=== PATIENT | male | born 1955 | race African-American/Black ===

== ENCOUNTER 2021-03-20 06:28 | Inpatient (IN) | payer OTHER ==
[2021-03-20] MEDS ORDERED: SODIUM CHLORIDE 1,000 ML IV STA (06:39)
[2021-03-20 07:05] VITALS: BMI 25.7
[2021-03-20] MEDS ORDERED: LORazepam 2 MG/ML SDV VIAL IVPUSH ONE ×2 (07:44→13:24)
[2021-03-20] MEDS ORDERED: LORazepam 2 MG/ML SDV VIAL ONE ×2 (07:46→13:25)
[2021-03-20] MEDS ORDERED: levETIRAcetam 500 MG/5 ML INJECTION VIAL IVPB ONE ×2 (07:51)
[2021-03-20 08:36] LABS: BASO % 0.2 % (0-2.0); HEMOGLOBIN 15.2 GM/dL (11.7-16.9); LYMPH % 7.4 % (8-40); MCH 33.1 pg (25.7-33.7); MCHC 33.1 g/dl (32.0-35.9); MEAN CELL VOLUME 100.1 fl (80-96); MEAN PLT VOLUME 6.9 fl (7.5-11.1); MONO % 4.9 % (3.8-10.2); NEUT % 87.5 % (42.8-82.8); PLATELET COUNT 293 K/MM3 (134-434); WHITE BLOOD COUNT 8.8 K/mm3 (4.0-10.0)
[2021-03-20 08:38] LABS: PH,URINE 5.5 (5.0-8.0); URINE APPEARANCE CLEAR; URINE BILIRUBIN NEGATIVE (NEGATIVE); URINE COLOR YELLOW; URINE GLUCOSE (UA) 2+ (NEGATIVE); URINE KETONE NEGATIVE (NEGATIVE); URINE LEUK ESTERASE NEGATIVE (NEGATIVE); URINE NITRITE NEGATIVE (NEGATIVE); URINE PROTEIN TRACE (NEGATIVE); URINE UROBILINOGEN 0.2 mg/dL (0.2-1.0)
[2021-03-20 08:50] LABS: INR 0.93 (0.83-1.09); PROTHROMBIN TIME (PATIENT) 11.5 SEC (9.7-13.0)
[2021-03-20 08:52] LABS: ACTIVATED PTT 25.3 SECONDS (25.2-36.5)
[2021-03-20 08:53] LABS: CHLORIDE 102 mmol/L (98-107); SODIUM 133 mmol/L (136-145)
[2021-03-20 08:55] LABS: ALBUMIN 4.2 g/dl (3.4-5.0); ANION GAP 15 MMOL/L (8-16); CALCIUM 9.2 mg/dL (8.5-10.1); CO2 17 mmol/L (21-32); GLUCOSE,RANDOM 197 mg/dL (74-106)
[2021-03-20 08:56] LABS: BLOOD UREA NITROGEN 20.7 mg/dL (7-18)
[2021-03-20 08:58] LABS: CHOLESTEROL 247 mg/dL (50-200); SGOT/AST 19 U/L (15-37); SGPT/ALT 27 U/L (13-61)
[2021-03-20 08:59] LABS: CREATININE 1.5 mg/dL (0.55-1.3); LDL CHOLESTEROL (ONLY SJRH) 142 mg/dL (5-100); TRIGLYCERIDES 218 mg/dL (0-150)
[2021-03-20 09:00] LABS: BILIRUBIN,TOTAL 0.4 mg/dL (0.2-1); TOT PROT 7.8 g/dl (6.4-8.2)
[2021-03-20 09:01] LABS: ALK PHOS 64 U/L (45-117); HDL CHOLESTEROL 46 mg/dL (40-60)
[2021-03-20 17:56] LABS: METHADONE, UR NEGATIVE ng/ml (CUTOFF=300); OPIATES, URI NEGATIVE ng/ml (CUTOFF=300); PHENCYCLIDINE,URINE NEGATIVE ng/ml (CUTOFF=25)
[2021-03-20 17:57] LABS: COCAINE, UR POSITIVE ng/ml (CUTOFF=300); URINE AMPHETAMINES NEGATIVE ng/ml (CUTOFF=500); URINE BARBITURATES NEGATIVE ng/ml (CUTOFF=200); URINE BENZODIAZEPINES POSITIVE ng/ml (CUTOFF=200)
[2021-03-20] MEDS: INSULIN SLIDING SCALE (NOVOLOG) 1 VIAL SQ SCH (21:19)
[2021-03-20] MEDS: levETIRAcetam 500 MG/5 ML INJECTION VIAL IVPB SCH (21:29)
[2021-03-21] MEDS: INSULIN SLIDING SCALE (NOVOLOG) 1 VIAL SQ SCH ×4 (07:02→23:19)
[2021-03-21 08:19] LABS: BASO % 0.6 % (0-2.0); EOS % 2.2 % (0-4.5); HEMATOCRIT 46.2 % (35.4-49); HEMOGLOBIN 15.2 GM/dL (11.7-16.9); LYMPH % 19.9 % (8-40); MCH 32.8 pg (25.7-33.7); MCHC 32.8 g/dl (32.0-35.9); MEAN CELL VOLUME 99.8 fl (80-96); MEAN PLT VOLUME 7.1 fl (7.5-11.1); MONO % 8.1 % (3.8-10.2); NEUT % 69.2 % (42.8-82.8); PLATELET COUNT 274 K/MM3 (134-434); RBC 4.63 M/mm3 (4.00-5.60); RDW 13.9 % (11.9-15.9); WHITE BLOOD COUNT 9.1 K/mm3 (4.0-10.0)
[2021-03-21 08:50] LABS: ALBUMIN 3.9 g/dl (3.4-5.0); CALCIUM 9.5 mg/dL (8.5-10.1)
[2021-03-21 08:51] LABS: BLOOD UREA NITROGEN 16.6 mg/dL (7-18)
[2021-03-21 08:54] LABS: CREATININE 0.8 mg/dL (0.55-1.3)
[2021-03-21 08:55] LABS: BILIRUBIN,TOTAL 0.9 mg/dL (0.2-1); TOT PROT 7.3 g/dl (6.4-8.2)
[2021-03-21] MEDS ORDERED: LISINOPRIL 5 MG TABLET PO SCH (10:00)
[2021-03-21] MEDS: levETIRAcetam 500 MG/5 ML INJECTION VIAL IVPB SCH ×2 (10:14→23:18)
[2021-03-21] MEDS: ENOXAPARIN NA (PORCINE) 40 MG/0.4 ML DISP.SYRIN SQ SCH (10:14)
[2021-03-21] MEDS: ATORVASTATIN CA 40 MG TABLET (FP) PO SCH (23:18)
[2021-03-21] MEDS: ASPIRIN COATED 81 MG TABLET.EC PO SCH (23:18)
[2021-03-22] MEDS: INSULIN SLIDING SCALE (NOVOLOG) 1 VIAL SQ SCH ×4 (06:31→22:37)
[2021-03-22 08:15] LABS: BASO % 0.5 % (0-2.0); EOS % 2.1 % (0-4.5); LYMPH % 19.9 % (8-40); MCH 33.1 pg (25.7-33.7); MCHC 33.4 g/dl (32.0-35.9); MEAN CELL VOLUME 99.1 fl (80-96); MEAN PLT VOLUME 7.3 fl (7.5-11.1); MONO % 9.6 % (3.8-10.2); NEUT % 67.9 % (42.8-82.8); PLATELET COUNT 322 10^3/uL (134-434); RBC 4.84 M/mm3 (4.00-5.60); RDW 13.9 % (11.9-15.9); WHITE BLOOD COUNT 8.5 K/mm3 (4.0-10.0)
[2021-03-22 08:32] LABS: ALBUMIN 4.1 g/dl (3.4-5.0); BLOOD UREA NITROGEN 15.9 mg/dL (7-18); CALCIUM 9.5 mg/dL (8.5-10.1)
[2021-03-22 08:36] LABS: CREATININE 0.9 mg/dL (0.55-1.3)
[2021-03-22 08:37] LABS: BILIRUBIN,TOTAL 1.4 mg/dL (0.2-1)
[2021-03-22] MEDS ORDERED: LISINOPRIL 10 MG TABLET PO ONE (09:39)
[2021-03-22] MEDS ORDERED: LISINOPRIL 5 MG TABLET PO SCH (09:40)
[2021-03-22] MEDS: LISINOPRIL 10 MG TABLET PO SCH (10:18)
[2021-03-22] MEDS: levETIRAcetam 500 MG/5 ML INJECTION VIAL IVPB SCH ×2 (10:18→22:35)
[2021-03-22] MEDS: ENOXAPARIN NA (PORCINE) 40 MG/0.4 ML DISP.SYRIN SQ SCH (10:19)
[2021-03-22] MEDS: ASPIRIN COATED 81 MG TABLET.EC PO SCH (10:19)
[2021-03-22] MEDS ORDERED: INSULIN (NOVOLOG) ASPART 100 UNITS/ML 10ML VIAL ONE (11:49)
[2021-03-22] MEDS ORDERED: ALPRAZolam 0.25 MG TABLET PO ONE ×2 (12:00→17:45)
[2021-03-22] MEDS: ATORVASTATIN CA 40 MG TABLET (FP) PO SCH (22:34)
[2021-03-22] MEDS: LATANOPROST 0.005% OPHTH SOLN 2.5ML BOTTLE OD SCH (22:38)
[2021-03-23] MEDS ORDERED: ALPRAZolam 0.25 MG TABLET PO ONE ×2 (02:30→22:00)
[2021-03-23] MEDS: INSULIN SLIDING SCALE (NOVOLOG) 1 VIAL SQ SCH ×4 (06:05→23:25)
[2021-03-23 07:18] LABS: BASO % 0.8 % (0-2.0); EOS % 0.9 % (0-4.5); HEMATOCRIT 49.5 % (35.4-49); HEMOGLOBIN 16.8 GM/dL (11.7-16.9); LYMPH % 17.7 % (8-40); MCH 33.6 pg (25.7-33.7); MCHC 33.9 g/dl (32.0-35.9); MEAN PLT VOLUME 7.1 fl (7.5-11.1); MONO % 10.3 % (3.8-10.2); NEUT % 70.3 % (42.8-82.8); PLATELET COUNT 322 10^3/uL (134-434); WHITE BLOOD COUNT 9.8 K/mm3 (4.0-10.0)
[2021-03-23 07:43] LABS: ALBUMIN 4.3 g/dl (3.4-5.0); CALCIUM 9.8 mg/dL (8.5-10.1)
[2021-03-23 07:48] LABS: BILIRUBIN,TOTAL 1.3 mg/dL (0.2-1); TOT PROT 8.5 g/dl (6.4-8.2)
[2021-03-23] MEDS: ASPIRIN COATED 81 MG TABLET.EC PO SCH (09:56)
[2021-03-23] MEDS: ENOXAPARIN NA (PORCINE) 40 MG/0.4 ML DISP.SYRIN SQ SCH (09:56)
[2021-03-23] MEDS: LISINOPRIL 10 MG TABLET PO SCH (09:56)
[2021-03-23] MEDS: levETIRAcetam 500 MG/5 ML INJECTION VIAL IVPB SCH ×2 (09:56→21:58)
[2021-03-23] MEDS: ACETAMINOPHEN 1000 MG/100 ML VIAL (NON FORMULARY) IVPB PRN (16:51)
[2021-03-23] MEDS: ATORVASTATIN CA 40 MG TABLET (FP) PO SCH (21:57)
[2021-03-23] MEDS: LATANOPROST 0.005% OPHTH SOLN 2.5ML BOTTLE OD SCH (21:58)
[2021-03-24] MEDS: ACETAMINOPHEN 1000 MG/100 ML VIAL (NON FORMULARY) IVPB PRN ×2 (02:43→11:23)
[2021-03-24] MEDS: INSULIN SLIDING SCALE (NOVOLOG) 1 VIAL SQ SCH ×4 (06:10→22:30)
[2021-03-24 07:08] LABS: BASO % 0.5 % (0-2.0); EOS % 1.8 % (0-4.5); HEMATOCRIT 47.4 % (35.4-49); HEMOGLOBIN 16.1 GM/dL (11.7-16.9); LYMPH % 22.8 % (8-40); MCH 33.5 pg (25.7-33.7); MCHC 33.9 g/dl (32.0-35.9); MEAN CELL VOLUME 98.9 fl (80-96); MONO % 8.6 % (3.8-10.2); NEUT % 66.3 % (42.8-82.8); PLATELET COUNT 302 10^3/uL (134-434); RDW 13.8 % (11.9-15.9); WHITE BLOOD COUNT 7.6 K/mm3 (4.0-10.0)
[2021-03-24 07:30] LABS: CALCIUM 9.3 mg/dL (8.5-10.1)
[2021-03-24 07:31] LABS: BLOOD UREA NITROGEN 29.5 mg/dL (7-18)
[2021-03-24 07:35] LABS: BILIRUBIN,TOTAL 1.4 mg/dL (0.2-1)
[2021-03-24 07:36] LABS: TOT PROT 7.8 g/dl (6.4-8.2)
[2021-03-24] MEDS: levETIRAcetam 500 MG/5 ML INJECTION VIAL IVPB SCH ×2 (09:43→21:56)
[2021-03-24] MEDS: LISINOPRIL 10 MG TABLET PO SCH (09:43)
[2021-03-24] MEDS: ENOXAPARIN NA (PORCINE) 40 MG/0.4 ML DISP.SYRIN SQ SCH (09:43)
[2021-03-24] MEDS: ASPIRIN COATED 81 MG TABLET.EC PO SCH (09:43)
[2021-03-24] MEDS: ATORVASTATIN CA 40 MG TABLET (FP) PO SCH (21:56)
[2021-03-24] MEDS: LATANOPROST 0.005% OPHTH SOLN 2.5ML BOTTLE OD SCH (22:25)
[2021-03-25] MEDS: ACETAMINOPHEN 1000 MG/100 ML VIAL (NON FORMULARY) IVPB PRN ×3 (04:24→17:41)
[2021-03-25] MEDS: INSULIN SLIDING SCALE (NOVOLOG) 1 VIAL SQ SCH ×4 (06:19→21:52)
[2021-03-25 08:16] LABS: BASO % 0.5 % (0-2.0); EOS % 2.7 % (0-4.5); HEMOGLOBIN 15.7 GM/dL (11.7-16.9); LYMPH % 26.9 % (8-40); MCH 32.8 pg (25.7-33.7); MCHC 32.8 g/dl (32.0-35.9); MEAN PLT VOLUME 7.1 fl (7.5-11.1); MONO % 8.3 % (3.8-10.2); NEUT % 61.6 % (42.8-82.8); PLATELET COUNT 310 10^3/uL (134-434); RDW 13.9 % (11.9-15.9); WHITE BLOOD COUNT 7.6 K/mm3 (4.0-10.0)
[2021-03-25 08:23] LABS: ALBUMIN 3.7 g/dl (3.4-5.0); CALCIUM 9.4 mg/dL (8.5-10.1)
[2021-03-25 08:26] LABS: CREATININE 0.9 mg/dL (0.55-1.3)
[2021-03-25 08:28] LABS: BILIRUBIN,TOTAL 1.1 mg/dL (0.2-1); TOT PROT 7.4 g/dl (6.4-8.2)
[2021-03-25] MEDS: LISINOPRIL 10 MG TABLET PO SCH (09:19)
[2021-03-25] MEDS: levETIRAcetam 500 MG/5 ML INJECTION VIAL IVPB SCH ×2 (09:19→21:34)
[2021-03-25] MEDS: ENOXAPARIN NA (PORCINE) 40 MG/0.4 ML DISP.SYRIN SQ SCH (09:19)
[2021-03-25] MEDS: SPIRONOLACTONE 25 MG TABLET PO SCH (09:19)
[2021-03-25] MEDS: ASPIRIN COATED 81 MG TABLET.EC PO SCH (09:19)
[2021-03-25] MEDS ORDERED: CARVEDILOL 3.125 MG TABLET (FP) PO SCH (10:00)
[2021-03-25] MEDS ORDERED: INSULIN (NOVOLOG) ASPART 100 UNITS/ML 10ML VIAL ONE (11:52)
[2021-03-25] MEDS: ATORVASTATIN CA 40 MG TABLET (FP) PO SCH (21:34)
[2021-03-25] MEDS: LATANOPROST 0.005% OPHTH SOLN 2.5ML BOTTLE OD SCH (21:35)
[2021-03-26] MEDS: ACETAMINOPHEN 1000 MG/100 ML VIAL (NON FORMULARY) IVPB PRN (02:20)
[2021-03-26] MEDS: INSULIN SLIDING SCALE (NOVOLOG) 1 VIAL SQ SCH ×4 (06:23→21:43)
[2021-03-26] MEDS: LISINOPRIL 10 MG TABLET PO SCH (09:47)
[2021-03-26] MEDS: SPIRONOLACTONE 25 MG TABLET PO SCH (09:47)
[2021-03-26] MEDS: ASPIRIN COATED 81 MG TABLET.EC PO SCH (09:47)
[2021-03-26] MEDS: ENOXAPARIN NA (PORCINE) 40 MG/0.4 ML DISP.SYRIN SQ SCH (09:47)
[2021-03-26] MEDS: levETIRAcetam 500 MG/5 ML INJECTION VIAL IVPB SCH (09:47)
[2021-03-26] MEDS ORDERED: INSULIN (NOVOLOG) ASPART 100 UNITS/ML 10ML VIAL ONE (11:30)
[2021-03-26] MEDS: MULTIVITAMINS (DAILY MVI) TABLET (FP) PO SCH (11:34)
[2021-03-26 15:02] LABS: N-TERMINAL BNP 96.5 pg/ml (5-125)
[2021-03-26] MEDS: ISOSORBIDE MONONITRATE 30 MG TAB.SR.24H (FP) PO SCH (16:46)
[2021-03-26] MEDS: ATORVASTATIN CA 40 MG TABLET (FP) PO SCH (21:17)
[2021-03-26] MEDS: hydrALAZINE HCL 10 MG TABLET PO SCH (21:17)
[2021-03-26] MEDS: levETIRAcetam 500 MG TABLET (FP) PO SCH (21:17)
[2021-03-26] MEDS: traMADol HCL 50 MG TABLET PO PRN (21:17)
[2021-03-26] MEDS: LATANOPROST 0.005% OPHTH SOLN 2.5ML BOTTLE OD SCH (21:19)
[2021-03-27] MEDS: INSULIN SLIDING SCALE (NOVOLOG) 1 VIAL SQ SCH ×4 (06:24→21:24)
[2021-03-27 07:34] LABS: EOS % 4.6 % (0-4.5); HEMATOCRIT 44.9 % (35.4-49); HEMOGLOBIN 14.8 GM/dL (11.7-16.9); MCH 33.1 pg (25.7-33.7); MCHC 32.9 g/dl (32.0-35.9); MEAN CELL VOLUME 100.6 fl (80-96); MEAN PLT VOLUME 7.3 fl (7.5-11.1); MONO % 8.1 % (3.8-10.2); NEUT % 57.3 % (42.8-82.8); PLATELET COUNT 281 10^3/uL (134-434); RBC 4.46 M/mm3 (4.00-5.60); RDW 13.4 % (11.9-15.9); WHITE BLOOD COUNT 6.7 K/mm3 (4.0-10.0)
[2021-03-27 07:44] LABS: CALCIUM 9.5 mg/dL (8.5-10.1)
[2021-03-27 07:45] LABS: BLOOD UREA NITROGEN 22.8 mg/dL (7-18)
[2021-03-27 07:47] LABS: ALBUMIN 3.5 g/dl (3.4-5.0)
[2021-03-27 07:50] LABS: BILIRUBIN,TOTAL 1.1 mg/dL (0.2-1); CREATININE 0.8 mg/dL (0.55-1.3)
[2021-03-27] MEDS: hydrALAZINE HCL 10 MG TABLET PO SCH ×2 (09:21→21:05)
[2021-03-27] MEDS: ASPIRIN COATED 81 MG TABLET.EC PO SCH (09:21)
[2021-03-27] MEDS: ENOXAPARIN NA (PORCINE) 40 MG/0.4 ML DISP.SYRIN SQ SCH (09:21)
[2021-03-27] MEDS: MULTIVITAMINS (DAILY MVI) TABLET (FP) PO SCH (09:21)
[2021-03-27] MEDS: SPIRONOLACTONE 25 MG TABLET PO SCH (09:21)
[2021-03-27] MEDS: levETIRAcetam 500 MG TABLET (FP) PO SCH ×2 (09:21→21:04)
[2021-03-27] MEDS: LISINOPRIL 10 MG TABLET PO SCH (09:21)
[2021-03-27] MEDS: ISOSORBIDE MONONITRATE 30 MG TAB.SR.24H (FP) PO SCH (09:21)
[2021-03-27] MEDS: traMADol HCL 50 MG TABLET PO PRN (13:55)
[2021-03-27] MEDS: ATORVASTATIN CA 40 MG TABLET (FP) PO SCH (21:05)
[2021-03-27] MEDS: LATANOPROST 0.005% OPHTH SOLN 2.5ML BOTTLE OD SCH (21:25)
[2021-03-28] MEDS: traMADol HCL 50 MG TABLET PO PRN ×3 (00:03→16:27)
[2021-03-28] MEDS: INSULIN SLIDING SCALE (NOVOLOG) 1 VIAL SQ SCH ×4 (06:02→21:28)
[2021-03-28] MEDS: MULTIVITAMINS (DAILY MVI) TABLET (FP) PO SCH (10:13)
[2021-03-28] MEDS: hydrALAZINE HCL 10 MG TABLET PO SCH ×2 (10:14→21:28)
[2021-03-28] MEDS: levETIRAcetam 500 MG TABLET (FP) PO SCH ×2 (10:14→21:28)
[2021-03-28] MEDS: ISOSORBIDE MONONITRATE 30 MG TAB.SR.24H (FP) PO SCH (10:14)
[2021-03-28] MEDS: SPIRONOLACTONE 25 MG TABLET PO SCH (10:14)
[2021-03-28] MEDS: ASPIRIN COATED 81 MG TABLET.EC PO SCH (10:14)
[2021-03-28] MEDS: LISINOPRIL 10 MG TABLET PO SCH (10:14)
[2021-03-28] MEDS ORDERED: SODIUM PHOSPHATE/NA BIPHOS 133 ML ENEMA PR ONE (14:34)
[2021-03-28] MEDS: POLYETHYLENE GLYCOL (HEALTHYLAX) 3350 17 GM PACKET PO SCH (14:50)
[2021-03-28] MEDS: DOCUSATE SODIUM 100 MG CAPSULE (FP) PO SCH ×2 (21:28→22:56)
[2021-03-28] MEDS: ATORVASTATIN CA 40 MG TABLET (FP) PO SCH (21:28)
[2021-03-28] MEDS: LATANOPROST 0.005% OPHTH SOLN 2.5ML BOTTLE OD SCH (21:29)
[2021-03-29] MEDS: traMADol HCL 50 MG TABLET PO PRN ×3 (00:40→17:42)
[2021-03-29] MEDS: INSULIN SLIDING SCALE (NOVOLOG) 1 VIAL SQ SCH ×3 (06:14→16:43)
[2021-03-29] MEDS: levETIRAcetam 500 MG TABLET (FP) PO SCH (09:31)
[2021-03-29] MEDS: LISINOPRIL 10 MG TABLET PO SCH (09:32)
[2021-03-29] MEDS: MULTIVITAMINS (DAILY MVI) TABLET (FP) PO SCH (09:32)
[2021-03-29] MEDS: SPIRONOLACTONE 25 MG TABLET PO SCH (09:32)
[2021-03-29] MEDS: POLYETHYLENE GLYCOL (HEALTHYLAX) 3350 17 GM PACKET PO SCH (09:33)
[2021-03-29] MEDS: hydrALAZINE HCL 10 MG TABLET PO SCH (09:39)
[2021-03-29] MEDS: ASPIRIN COATED 81 MG TABLET.EC PO SCH (11:39)
[2021-03-29] MEDS: ISOSORBIDE MONONITRATE 30 MG TAB.SR.24H (FP) PO SCH (11:39)
[2021-03-29 13:01] VITALS: PULSE 84
[2021-03-29 13:30] VITALS: BP 108/69; TEMP 97.3
== END 2021-03-29 18:18 | DRG 65 ==
LOC: JER 06:28 → JERBED 12:54 → J4W 14:27 → J5S 03-27 11:38
PROVIDERS: ADMIT Internal Medicine; ATTEND Internal Medicine
DX: I63.89 Other cerebral infarction (principal); N17.9 Acute kidney failure, unspecified; J98.11 Atelectasis; R29.714 NIHSS score 14; E11.9 Type 2 diabetes mellitus without complications; G40.909 Epilepsy, unspecified, not intractable, without status epilepticus; I10 Essential (primary) hypertension; E78.00 Pure hypercholesterolemia, unspecified; R41.82 Altered mental status, unspecified; F14.129 Cocaine abuse with intoxication, unspecified; F10.129 Alcohol abuse with intoxication, unspecified; F13.129 Sedative, hypnotic or anxiolytic abuse with intoxication, unspecified; R94.5 Abnormal results of liver function studies; G43.919 Migraine, unspecified, intractable, without status migrainosus; Z96.653 Presence of artificial knee joint, bilateral
CPT/HCPCS: 36415; 70450-TC; 70551-TC; 71045-TC-FY; 72070-TC-FY; 72100-TC-FY; 72128-TC; 74230-TC-FY; 76705-TC; 80053; 80061; 80177; 80307; 81003; 82962; 83036; 83721; 83880; 84443; 84484; 85025; 85610; 85730; 87086; 92611-GN; 93005; 93010; 93306-TC; 93880-TC; 97116-GP; 97162-GP; 99285-25; C9803; J0131; U0003; U0005

== ENCOUNTER 2021-04-26 15:07 | Inpatient (IN) | payer OTHER ==
[2021-04-26 18:35] LABS: BASO % 0.8 % (0-2.0); EOS % 3.2 % (0-4.5); HEMATOCRIT 43.1 % (35.4-49); HEMOGLOBIN 14.6 GM/dL (11.7-16.9); LYMPH % 33.8 % (8-40); MCH 32.4 pg (25.7-33.7); MCHC 33.9 g/dl (32.0-35.9); MEAN CELL VOLUME 95.8 fl (80-96); MEAN PLT VOLUME 6.8 fl (7.5-11.1); NEUT % 57.2 % (42.8-82.8); PLATELET COUNT 259 10^3/uL (134-434); RDW 12.8 % (11.9-15.9); WHITE BLOOD COUNT 6.2 K/mm3 (4.0-10.0)
[2021-04-26 18:39] LABS: INR 1.03 (0.83-1.09); PROTHROMBIN TIME (PATIENT) 12.6 SEC (9.7-13.0)
[2021-04-26 18:42] LABS: ACTIVATED PTT 27.4 SECONDS (25.2-36.5)
[2021-04-26] MEDS ORDERED: LIDOCAINE VISCOUS 2% ORAL/TOP 15 ML UNIT-DOSE CUP MM ONE (19:02)
[2021-04-26] MEDS ORDERED: ACETAMINOPHEN 1000 MG/100 ML VIAL (NON FORMULARY) IVPB ONE (19:05)
[2021-04-26 19:17] LABS: CHLORIDE 108 mmol/L (98-107); SODIUM 140 mmol/L (136-145)
[2021-04-26 19:19] LABS: ALBUMIN 3.9 g/dl (3.4-5.0); ANION GAP 10 MMOL/L (8-16); BLOOD UREA NITROGEN 12.1 mg/dL (7-18); CALCIUM 9.4 mg/dL (8.5-10.1); CO2 22 mmol/L (21-32); GLUCOSE,RANDOM 114 mg/dL (74-106)
[2021-04-26 19:23] LABS: CREATININE 0.8 mg/dL (0.55-1.3); SGOT/AST 23 U/L (15-37); SGPT/ALT 35 U/L (13-61)
[2021-04-26 19:25] LABS: ALK PHOS 68 U/L (45-117); BILIRUBIN,TOTAL 0.8 mg/dL (0.2-1); TOT PROT 7.2 g/dl (6.4-8.2)
[2021-04-26 19:27] LABS: N-TERMINAL BNP 139.5 pg/ml (5-125)
[2021-04-26] MEDS ORDERED: LIDOCAINE VISCOUS 2% ORAL/TOP 15 ML UNIT-DOSE CUP ONE (20:09)
[2021-04-26] MEDS ORDERED: ACETAMINOPHEN INJECTION 100 ML IVPB ONE (20:09)
[2021-04-26] MEDS: LACTATED RINGERS SOLUTION 1,000 ML/1,000 ML INFUS.BAG IV SCH (20:31)
[2021-04-26] MEDS ORDERED: levETIRAcetam 500 MG TABLET (FP) PO ONE (23:59)
[2021-04-26] MEDS ORDERED: hydrALAZINE HCL 25 MG TABLET (FP) ONE (23:59)
[2021-04-27] MEDS: levETIRAcetam 500 MG TABLET (FP) PO SCH ×3 (00:32→21:14)
[2021-04-27] MEDS: hydrALAZINE HCL 10 MG TABLET PO SCH ×3 (00:32→21:13)
[2021-04-27 01:54] VITALS: BMI 21.7
[2021-04-27 02:05] LABS: URINE APPEARANCE CLEAR; URINE BILIRUBIN 1+ (NEGATIVE); URINE COLOR DK YELLOW; URINE GLUCOSE (UA) NEGATIVE (NEGATIVE); URINE KETONE 1+ (NEGATIVE); URINE LEUK ESTERASE NEGATIVE (NEGATIVE); URINE NITRITE NEGATIVE (NEGATIVE); URINE PROTEIN TRACE (NEGATIVE)
[2021-04-27] MEDS: ACETAMINOPHEN 325 MG TABLET (FP) PO PRN ×2 (02:55→17:48)
[2021-04-27] MEDS: INSULIN SLIDING SCALE (NOVOLOG) 1 VIAL SQ SCH ×4 (06:09→21:15)
[2021-04-27 07:20] LABS: BASO % 0.3 % (0-2.0); EOS % 3.7 % (0-4.5); HEMATOCRIT 40.1 % (35.4-49); HEMOGLOBIN 13.7 GM/dL (11.7-16.9); LYMPH % 33.1 % (8-40); MCH 32.7 pg (25.7-33.7); MCHC 34.1 g/dl (32.0-35.9); MEAN CELL VOLUME 95.9 fl (80-96); MEAN PLT VOLUME 6.6 fl (7.5-11.1); MONO % 6.8 % (3.8-10.2); NEUT % 56.1 % (42.8-82.8); PLATELET COUNT 240 10^3/uL (134-434); RBC 4.18 M/mm3 (4.00-5.60); RDW 12.6 % (11.9-15.9); WHITE BLOOD COUNT 5.7 K/mm3 (4.0-10.0)
[2021-04-27 07:43] LABS: CALCIUM 8.4 mg/dL (8.5-10.1)
[2021-04-27 07:48] LABS: CREATININE 0.6 mg/dL (0.55-1.3)
[2021-04-27 07:49] LABS: BILIRUBIN,TOTAL 0.5 mg/dL (0.2-1); TOT PROT 5.4 g/dl (6.4-8.2)
[2021-04-27 07:56] LABS: BLOOD UREA NITROGEN 12.1 mg/dL (7-18)
[2021-04-27] MEDS: SPIRONOLACTONE 25 MG TABLET PO SCH (09:33)
[2021-04-27] MEDS: LISINOPRIL 5 MG TABLET PO SCH (09:33)
[2021-04-27] MEDS: ISOSORBIDE MONONITRATE 30 MG TAB.SR.24H (FP) PO SCH (09:33)
[2021-04-27] MEDS: ENOXAPARIN NA (PORCINE) 40 MG/0.4 ML DISP.SYRIN SQ SCH (09:33)
[2021-04-27] MEDS: ASPIRIN COATED 81 MG TABLET.EC PO SCH (09:33)
[2021-04-27] MEDS: MULTIVITAMINS (DAILY MVI) TABLET (FP) PO SCH (09:33)
[2021-04-27] MEDS: POLYETHYLENE GLYCOL (HEALTHYLAX) 3350 17 GM PACKET PO SCH (09:34)
[2021-04-27] MEDS ORDERED: PT OWN MED DRAWER 7, Y5N ONE (20:51)
[2021-04-27] MEDS: DOCUSATE SODIUM 100 MG CAPSULE (FP) PO SCH (21:13)
[2021-04-27] MEDS: ATORVASTATIN CA 40 MG TABLET (FP) PO SCH (21:14)
[2021-04-27] MEDS: LATANOPROST 0.005% OPHTH SOLN 2.5ML BOTTLE OD SCH (21:15)
[2021-04-28] MEDS: LACTATED RINGERS SOLUTION 1,000 ML/1,000 ML INFUS.BAG IV SCH (00:41)
[2021-04-28] MEDS: INSULIN SLIDING SCALE (NOVOLOG) 1 VIAL SQ SCH ×4 (06:34→22:24)
[2021-04-28] MEDS: ACETAMINOPHEN 325 MG TABLET (FP) PO PRN ×2 (09:20→16:44)
[2021-04-28] MEDS: levETIRAcetam 500 MG TABLET (FP) PO SCH ×2 (09:32→21:52)
[2021-04-28] MEDS: LISINOPRIL 5 MG TABLET PO SCH (09:32)
[2021-04-28] MEDS: MULTIVITAMINS (DAILY MVI) TABLET (FP) PO SCH (09:32)
[2021-04-28] MEDS: ASPIRIN COATED 81 MG TABLET.EC PO SCH (09:32)
[2021-04-28] MEDS: POLYETHYLENE GLYCOL (HEALTHYLAX) 3350 17 GM PACKET PO SCH (09:32)
[2021-04-28] MEDS: hydrALAZINE HCL 10 MG TABLET PO SCH ×2 (09:32→21:50)
[2021-04-28] MEDS: ISOSORBIDE MONONITRATE 30 MG TAB.SR.24H (FP) PO SCH (09:32)
[2021-04-28] MEDS: SPIRONOLACTONE 25 MG TABLET PO SCH (09:32)
[2021-04-28] MEDS: ENOXAPARIN NA (PORCINE) 40 MG/0.4 ML DISP.SYRIN SQ SCH (09:33)
[2021-04-28] MEDS ORDERED: INSULIN (LEVEMIR) 100 UNITS/ML UNITS SQ ONE (11:06)
[2021-04-28] MEDS ORDERED: INSULIN (NOVOLOG) ASPART 100 UNITS/ML 10ML VIAL ONE (11:06)
[2021-04-28] MEDS ORDERED: PNEUMOC 13-VAL CONJ-DIP CRM/PF 0.5 ML DISP.SYRIN IM ONE (14:00)
[2021-04-28] MEDS ORDERED: traMADol HCL 50 MG TABLET PO ONE (20:30)
[2021-04-28] MEDS: ATORVASTATIN CA 40 MG TABLET (FP) PO SCH (21:50)
[2021-04-28] MEDS: DOCUSATE SODIUM 100 MG CAPSULE (FP) PO SCH (21:51)
[2021-04-28] MEDS ORDERED: PT OWN MED DRAWER 7, Y5N ONE (22:20)
[2021-04-28] MEDS: LATANOPROST 0.005% OPHTH SOLN 2.5ML BOTTLE OD SCH (22:46)
[2021-04-29] MEDS: INSULIN SLIDING SCALE (NOVOLOG) 1 VIAL SQ SCH ×4 (06:16→22:48)
[2021-04-29] MEDS: ASPIRIN COATED 81 MG TABLET.EC PO SCH (09:45)
[2021-04-29] MEDS: MULTIVITAMINS (DAILY MVI) TABLET (FP) PO SCH (09:45)
[2021-04-29] MEDS: ENOXAPARIN NA (PORCINE) 40 MG/0.4 ML DISP.SYRIN SQ SCH (09:45)
[2021-04-29] MEDS: POLYETHYLENE GLYCOL (HEALTHYLAX) 3350 17 GM PACKET PO SCH (09:45)
[2021-04-29] MEDS: levETIRAcetam 500 MG TABLET (FP) PO SCH ×2 (09:45→22:39)
[2021-04-29] MEDS: ISOSORBIDE MONONITRATE 30 MG TAB.SR.24H (FP) PO SCH (09:45)
[2021-04-29] MEDS: hydrALAZINE HCL 10 MG TABLET PO SCH ×2 (09:45→22:39)
[2021-04-29] MEDS: LISINOPRIL 5 MG TABLET PO SCH (09:46)
[2021-04-29] MEDS: SPIRONOLACTONE 25 MG TABLET PO SCH (09:46)
[2021-04-29] MEDS: ACETAMINOPHEN 325 MG TABLET (FP) PO PRN ×2 (11:27→17:14)
[2021-04-29] MEDS: ATORVASTATIN CA 40 MG TABLET (FP) PO SCH (22:40)
[2021-04-29] MEDS: LATANOPROST 0.005% OPHTH SOLN 2.5ML BOTTLE OD SCH (22:40)
[2021-04-29] MEDS: DOCUSATE SODIUM 100 MG CAPSULE (FP) PO SCH (22:55)
[2021-04-30] MEDS: INSULIN SLIDING SCALE (NOVOLOG) 1 VIAL SQ SCH ×4 (06:14→21:18)
[2021-04-30] MEDS: ACETAMINOPHEN 325 MG TABLET (FP) PO PRN ×3 (08:10→21:18)
[2021-04-30] MEDS: ENOXAPARIN NA (PORCINE) 40 MG/0.4 ML DISP.SYRIN SQ SCH (09:04)
[2021-04-30] MEDS: SPIRONOLACTONE 25 MG TABLET PO SCH (09:04)
[2021-04-30] MEDS: hydrALAZINE HCL 10 MG TABLET PO SCH ×2 (09:04→21:17)
[2021-04-30] MEDS: levETIRAcetam 500 MG TABLET (FP) PO SCH ×2 (09:04→21:17)
[2021-04-30] MEDS: LISINOPRIL 5 MG TABLET PO SCH (09:04)
[2021-04-30] MEDS: ISOSORBIDE MONONITRATE 30 MG TAB.SR.24H (FP) PO SCH (09:05)
[2021-04-30] MEDS: POLYETHYLENE GLYCOL (HEALTHYLAX) 3350 17 GM PACKET PO SCH (09:05)
[2021-04-30] MEDS: ASPIRIN COATED 81 MG TABLET.EC PO SCH (09:05)
[2021-04-30] MEDS: MULTIVITAMINS (DAILY MVI) TABLET (FP) PO SCH (09:05)
[2021-04-30] MEDS ORDERED: diphenhydrAMINE HCL 25 MG CAPSULE (FP) PO ONE (16:00)
[2021-04-30] MEDS: ATORVASTATIN CA 40 MG TABLET (FP) PO SCH (21:17)
[2021-04-30] MEDS: MELATONIN 5 MG TABLETS PO PRN (21:17)
[2021-04-30] MEDS: DOCUSATE SODIUM 100 MG CAPSULE (FP) PO SCH (21:17)
[2021-04-30] MEDS: LATANOPROST 0.005% OPHTH SOLN 2.5ML BOTTLE OD SCH (21:23)
[2021-05-01] MEDS: INSULIN SLIDING SCALE (NOVOLOG) 1 VIAL SQ SCH ×4 (06:41→21:58)
[2021-05-01] MEDS: SPIRONOLACTONE 25 MG TABLET PO SCH (09:47)
[2021-05-01] MEDS: ASPIRIN COATED 81 MG TABLET.EC PO SCH (09:47)
[2021-05-01] MEDS: LISINOPRIL 5 MG TABLET PO SCH (09:47)
[2021-05-01] MEDS: MULTIVITAMINS (DAILY MVI) TABLET (FP) PO SCH (09:47)
[2021-05-01] MEDS: ENOXAPARIN NA (PORCINE) 40 MG/0.4 ML DISP.SYRIN SQ SCH (09:47)
[2021-05-01] MEDS: POLYETHYLENE GLYCOL (HEALTHYLAX) 3350 17 GM PACKET PO SCH (09:47)
[2021-05-01] MEDS: hydrALAZINE HCL 10 MG TABLET PO SCH ×2 (09:48→21:10)
[2021-05-01] MEDS: ISOSORBIDE MONONITRATE 30 MG TAB.SR.24H (FP) PO SCH (09:48)
[2021-05-01] MEDS: levETIRAcetam 500 MG TABLET (FP) PO SCH ×2 (09:48→21:11)
[2021-05-01] MEDS: ACETAMINOPHEN 325 MG TABLET (FP) PO PRN ×2 (10:07→16:23)
[2021-05-01] MEDS: diphenhydrAMINE HCL 25 MG CAPSULE (FP) PO PRN (15:00)
[2021-05-01] MEDS: ATORVASTATIN CA 40 MG TABLET (FP) PO SCH (21:11)
[2021-05-01] MEDS: DOCUSATE SODIUM 100 MG CAPSULE (FP) PO SCH (21:11)
[2021-05-01] MEDS: MELATONIN 5 MG TABLETS PO PRN (21:19)
[2021-05-01] MEDS: LATANOPROST 0.005% OPHTH SOLN 2.5ML BOTTLE OD SCH (21:58)
[2021-05-02] MEDS: ACETAMINOPHEN 325 MG TABLET (FP) PO PRN ×3 (01:00→14:42)
[2021-05-02] MEDS: INSULIN SLIDING SCALE (NOVOLOG) 1 VIAL SQ SCH ×2 (06:01→13:45)
[2021-05-02] MEDS ORDERED: INSULIN (NOVOLOG) ASPART 100 UNITS/ML 10ML VIAL ONE (07:09)
[2021-05-02] MEDS: hydrALAZINE HCL 10 MG TABLET PO SCH (09:37)
[2021-05-02] MEDS: LISINOPRIL 5 MG TABLET PO SCH (09:37)
[2021-05-02] MEDS: SPIRONOLACTONE 25 MG TABLET PO SCH (09:37)
[2021-05-02] MEDS: ISOSORBIDE MONONITRATE 30 MG TAB.SR.24H (FP) PO SCH (09:37)
[2021-05-02] MEDS: MULTIVITAMINS (DAILY MVI) TABLET (FP) PO SCH (09:37)
[2021-05-02] MEDS: ENOXAPARIN NA (PORCINE) 40 MG/0.4 ML DISP.SYRIN SQ SCH (09:37)
[2021-05-02] MEDS: ASPIRIN COATED 81 MG TABLET.EC PO SCH (09:37)
[2021-05-02] MEDS: levETIRAcetam 500 MG TABLET (FP) PO SCH (09:37)
[2021-05-02] MEDS: diphenhydrAMINE HCL 25 MG CAPSULE (FP) PO PRN (09:45)
[2021-05-02] MEDS: POLYETHYLENE GLYCOL (HEALTHYLAX) 3350 17 GM PACKET PO SCH (11:06)
[2021-05-02 13:59] VITALS: BP 110/72; PULSE 72; TEMP 97.5
== END 2021-05-02 16:37 | DRG 57 ==
LOC: JER 15:07 → JERBED 17:01 → J4W 04-27 01:07
PROVIDERS: ADMIT Internal Medicine; ATTEND Internal Medicine
DX: I69.351 Hemiplegia and hemiparesis following cerebral infarction affecting right dominant side (principal); E11.9 Type 2 diabetes mellitus without complications; I10 Essential (primary) hypertension; Z79.4 Long term (current) use of insulin; G43.909 Migraine, unspecified, not intractable, without status migrainosus; R29.6 Repeated falls; E78.5 Hyperlipidemia, unspecified; G40.909 Epilepsy, unspecified, not intractable, without status epilepticus
CPT/HCPCS: 36415; 70450-TC; 71045-TC-FY; 72125-TC; 73030-TC-RT-FY; 73630-TC-RT-FY; 80053; 81003; 82550; 82962; 83880; 84484; 85025; 85610; 85730; 87086; 90670; 93005; 93010; 97116-GP; 97161-GP; 99285-25; C9803; J0131; U0003; U0005

== ENCOUNTER 2021-08-28 12:47 | Inpatient (IN) | payer OTHER ==
[2021-08-28] MEDS ORDERED: LACTATED RINGERS SOLUTION 1000 ML INFUS.BAG IV ONE (13:19)
[2021-08-28] MEDS ORDERED: ACETAMINOPHEN 1000 MG/100 ML VIAL IVPB ONE (13:19)
[2021-08-28] MEDS ORDERED: MECLIZINE HCL 25 MG TABLET (FP) PO ONE (13:19)
[2021-08-28] MEDS ORDERED: METOCLOPRAMIDE HCL INJECTION 10 MG/2 ML VIAL IVPUSH ONE (13:19)
[2021-08-28] MEDS ORDERED: ACETAMINOPHEN INJECTION 100 ML IVPB ONE (13:25)
[2021-08-28] MEDS ORDERED: MECLIZINE HCL 25 MG TABLET (FP) ONE (13:25)
[2021-08-28 13:31] LABS: EOS % 3.1 % (0-4.5); HEMATOCRIT 42.4 % (35.4-49); HEMOGLOBIN 14.5 GM/dL (11.7-16.9); LYMPH % 33.7 % (8-40); MCH 32.3 pg (25.7-33.7); MCHC 34.2 g/dl (32.0-35.9); MEAN CELL VOLUME 94.4 fl (80-96); MEAN PLT VOLUME 6.9 fl (7.5-11.1); MONO % 5.2 % (3.8-10.2); PLATELET COUNT 285 10^3/uL (134-434); RBC 4.49 M/mm3 (4.00-5.60); RDW 13.1 % (11.9-15.9)
[2021-08-28 13:39] LABS: INR 1.21 (0.83-1.09); PROTHROMBIN TIME (PATIENT) 13.6 SEC (9.7-13.0)
[2021-08-28 13:42] LABS: ACTIVATED PTT 27.9 SECONDS (25.2-36.5)
[2021-08-28 13:50] LABS: CHLORIDE 106 mmol/L (98-107); SODIUM 138 mmol/L (136-145)
[2021-08-28 13:52] LABS: ALBUMIN 4.1 g/dl (3.4-5.0); ANION GAP 8 MMOL/L (8-16); CALCIUM 9.3 mg/dL (8.5-10.1); CO2 25 mmol/L (21-32); GLUCOSE,RANDOM 197 mg/dL (74-106)
[2021-08-28 13:55] LABS: CREATININE 0.9 mg/dL (0.55-1.3)
[2021-08-28 13:56] LABS: SGOT/AST 8 U/L (15-37); SGPT/ALT 16 U/L (13-61)
[2021-08-28 13:57] LABS: BILIRUBIN,TOTAL 0.5 mg/dL (0.2-1); TOT PROT 7.5 g/dl (6.4-8.2)
[2021-08-28 13:58] LABS: ALK PHOS 67 U/L (45-117)
[2021-08-28] MEDS ORDERED: MAGNESIUM SULF 50% (8.12 MEQ/2 ML-1 GM VIAL) IVPB ONE (14:45)
[2021-08-28] MEDS ORDERED: MAGNESIUM 1GM/D5W - 1 GM/100 ML IVPB IVPB ONE (14:51)
[2021-08-28 16:51] LABS: PH,URINE 5.5 (5.0-8.0); URINE APPEARANCE CLEAR; URINE BILIRUBIN NEGATIVE (NEGATIVE); URINE COLOR YELLOW; URINE GLUCOSE (UA) NEGATIVE (NEGATIVE); URINE KETONE NEGATIVE (NEGATIVE); URINE LEUK ESTERASE NEGATIVE (NEGATIVE); URINE NITRITE NEGATIVE (NEGATIVE); URINE PROTEIN NEGATIVE (NEGATIVE)
[2021-08-28] MEDS ORDERED: KETOROLAC TROMETHAMINE 15 MG/ML VIAL IVPUSH ONE (18:14)
[2021-08-28] MEDS ORDERED: KETOROLAC TROMETHAMINE 30 MG/1 ML VIAL ONE (18:15)
[2021-08-28 20:02] VITALS: BMI 19.3
[2021-08-28] MEDS: INSULIN SLIDING SCALE (NOVOLOG) 1 VIAL SQ SCH (21:57)
[2021-08-28] MEDS: hydrALAZINE HCL 10 MG TABLET PO SCH (23:37)
[2021-08-28] MEDS: levETIRAcetam 500 MG TABLET (FP) PO SCH (23:37)
[2021-08-28] MEDS: ATORVASTATIN CA 40 MG TABLET (FP) PO SCH (23:37)
[2021-08-28] MEDS: DOCUSATE SODIUM 100 MG CAPSULE (FP) PO SCH (23:37)
[2021-08-28] MEDS: LATANOPROST 0.005% OPHTH SOLN 2.5ML BOTTLE OU SCH (23:38)
[2021-08-29] MEDS: INSULIN SLIDING SCALE (NOVOLOG) 1 VIAL SQ SCH ×4 (06:04→21:08)
[2021-08-29 07:11] LABS: BASO % 0.4 % (0-2.0); EOS % 4.8 % (0-4.5); HEMATOCRIT 38.3 % (35.4-49); LYMPH % 46.4 % (8-40); MCH 32.2 pg (25.7-33.7); MEAN CELL VOLUME 94.7 fl (80-96); MEAN PLT VOLUME 7.1 fl (7.5-11.1); MONO % 5.8 % (3.8-10.2); NEUT % 42.6 % (42.8-82.8); PLATELET COUNT 250 10^3/uL (134-434); RBC 4.05 M/mm3 (4.00-5.60); RDW 12.7 % (11.9-15.9); WHITE BLOOD COUNT 5.8 K/mm3 (4.0-10.0)
[2021-08-29 07:37] LABS: CALCIUM 8.8 mg/dL (8.5-10.1)
[2021-08-29 07:38] LABS: ALBUMIN 3.5 g/dl (3.4-5.0); BLOOD UREA NITROGEN 17.5 mg/dL (7-18)
[2021-08-29 07:41] LABS: CREATININE 0.8 mg/dL (0.55-1.3)
[2021-08-29 07:42] LABS: BILIRUBIN,TOTAL 0.5 mg/dL (0.2-1); TOT PROT 6.3 g/dl (6.4-8.2)
[2021-08-29] MEDS: levETIRAcetam 500 MG TABLET (FP) PO SCH ×2 (09:35→21:08)
[2021-08-29] MEDS: LISINOPRIL 5 MG TABLET PO SCH (09:35)
[2021-08-29] MEDS: POLYETHYLENE GLYCOL (HEALTHYLAX) 3350 17 GM PACKET PO SCH (09:35)
[2021-08-29] MEDS: SPIRONOLACTONE 25 MG TABLET PO SCH (09:35)
[2021-08-29] MEDS: hydrALAZINE HCL 10 MG TABLET PO SCH ×2 (09:35→21:08)
[2021-08-29] MEDS: ISOSORBIDE MONONITRATE 30 MG TAB.SR.24H (FP) PO SCH (09:35)
[2021-08-29] MEDS: ASPIRIN COATED 81 MG TABLET.EC PO SCH (09:35)
[2021-08-29] MEDS: ENOXAPARIN NA (PORCINE) 40 MG/0.4 ML DISP.SYRIN SQ SCH (09:35)
[2021-08-29] MEDS: ACETAMINOPHEN 325 MG TABLET (FP) PO PRN ×2 (11:28→17:38)
[2021-08-29] MEDS: MECLIZINE HCL 25 MG TABLET (FP) PO PRN ×2 (11:29→17:39)
[2021-08-29] MEDS: ATORVASTATIN CA 40 MG TABLET (FP) PO SCH (21:08)
[2021-08-29] MEDS: DOCUSATE SODIUM 100 MG CAPSULE (FP) PO SCH (21:08)
[2021-08-29] MEDS: LATANOPROST 0.005% OPHTH SOLN 2.5ML BOTTLE OU SCH (21:10)
[2021-08-30] MEDS: ACETAMINOPHEN 325 MG TABLET (FP) PO PRN ×2 (01:31→19:55)
[2021-08-30] MEDS: MECLIZINE HCL 25 MG TABLET (FP) PO PRN ×3 (01:31→19:55)
[2021-08-30] MEDS: INSULIN SLIDING SCALE (NOVOLOG) 1 VIAL SQ SCH ×4 (06:18→21:24)
[2021-08-30] MEDS: POLYETHYLENE GLYCOL (HEALTHYLAX) 3350 17 GM PACKET PO SCH (09:06)
[2021-08-30] MEDS: ENOXAPARIN NA (PORCINE) 40 MG/0.4 ML DISP.SYRIN SQ SCH (09:06)
[2021-08-30] MEDS: ACETAMINOPHEN/CAFFEINE/BUTALBITAL 1 TAB PO PRN (09:07)
[2021-08-30] MEDS: SPIRONOLACTONE 25 MG TABLET PO SCH (09:09)
[2021-08-30] MEDS: LISINOPRIL 5 MG TABLET PO SCH (09:09)
[2021-08-30] MEDS: ISOSORBIDE MONONITRATE 30 MG TAB.SR.24H (FP) PO SCH (09:09)
[2021-08-30] MEDS: ASPIRIN COATED 81 MG TABLET.EC PO SCH (09:09)
[2021-08-30] MEDS: hydrALAZINE HCL 10 MG TABLET PO SCH ×2 (09:09→21:24)
[2021-08-30] MEDS: levETIRAcetam 500 MG TABLET (FP) PO SCH ×2 (09:09→21:24)
[2021-08-30] MEDS: DOCUSATE SODIUM 100 MG CAPSULE (FP) PO SCH (21:24)
[2021-08-30] MEDS: ATORVASTATIN CA 40 MG TABLET (FP) PO SCH (21:24)
[2021-08-30] MEDS: LATANOPROST 0.005% OPHTH SOLN 2.5ML BOTTLE OU SCH (21:26)
[2021-08-31] MEDS: INSULIN SLIDING SCALE (NOVOLOG) 1 VIAL SQ SCH ×2 (06:18→11:49)
[2021-08-31 07:32] LABS: BASO % 0.4 % (0-2.0); EOS % 4.7 % (0-4.5); HEMATOCRIT 39.1 % (35.4-49); HEMOGLOBIN 13.3 GM/dL (11.7-16.9); LYMPH % 29.4 % (8-40); MCH 31.9 pg (25.7-33.7); MCHC 33.9 g/dl (32.0-35.9); MEAN CELL VOLUME 94.2 fl (80-96); MONO % 6.8 % (3.8-10.2); NEUT % 58.7 % (42.8-82.8); PLATELET COUNT 253 10^3/uL (134-434); RBC 4.15 M/mm3 (4.00-5.60); RDW 12.9 % (11.9-15.9); WHITE BLOOD COUNT 7.2 K/mm3 (4.0-10.0)
[2021-08-31] MEDS: LISINOPRIL 5 MG TABLET PO SCH (09:02)
[2021-08-31] MEDS: hydrALAZINE HCL 10 MG TABLET PO SCH (09:02)
[2021-08-31] MEDS: SPIRONOLACTONE 25 MG TABLET PO SCH (09:02)
[2021-08-31] MEDS: levETIRAcetam 500 MG TABLET (FP) PO SCH (09:02)
[2021-08-31] MEDS: POLYETHYLENE GLYCOL (HEALTHYLAX) 3350 17 GM PACKET PO SCH (09:02)
[2021-08-31] MEDS: ISOSORBIDE MONONITRATE 30 MG TAB.SR.24H (FP) PO SCH (09:02)
[2021-08-31] MEDS: ASPIRIN COATED 81 MG TABLET.EC PO SCH (09:03)
[2021-08-31] MEDS: ENOXAPARIN NA (PORCINE) 40 MG/0.4 ML DISP.SYRIN SQ SCH (09:03)
[2021-08-31 09:10] LABS: PLATELET ESTIMATE NORMAL
[2021-08-31 10:13] LABS: BILIRUBIN,TOTAL 0.4 mg/dL (0.2-1); BLOOD UREA NITROGEN 12.2 mg/dL (7-18); CALCIUM 9.1 mg/dL (8.5-10.1); CREATININE 0.8 mg/dL (0.55-1.3)
[2021-08-31] MEDS: ACETAMINOPHEN/CAFFEINE/BUTALBITAL 1 TAB PO PRN (11:43)
[2021-08-31 15:15] VITALS: BP 109/79; PULSE 89; TEMP 98.5
== END 2021-08-31 17:03 | DRG 103 ==
LOC: JER 12:47 → JERBED 15:31 → J4W 19:01
PROVIDERS: ADMIT Family Medicine Geriatric Medicine; ATTEND Family Medicine Geriatric Medicine
DX: R51.9 Headache, unspecified (principal); I69.354 Hemiplegia and hemiparesis following cerebral infarction affecting left non-dominant side; E11.9 Type 2 diabetes mellitus without complications; I10 Essential (primary) hypertension; H54.40 Blindness, one eye, unspecified eye; G93.89 Other specified disorders of brain; G40.909 Epilepsy, unspecified, not intractable, without status epilepticus; R42 Dizziness and giddiness; E78.5 Hyperlipidemia, unspecified; R41.82 Altered mental status, unspecified
CPT/HCPCS: 36415; 70450-TC; 70551-TC; 71045-TC-FY; 80053; 81003; 82550; 82607; 82962; 83090; 84443; 84484; 85025; 85610; 85651; 85730; 86140; 87086; 93005; 93010; 93306-TC; 93880-TC; 97116-GP; 97162-GP; 99285-25; C9803; J0131; U0003; U0005

== ENCOUNTER 2022-11-11 12:14 | Inpatient (IN) | payer OTHER ==
[2022-11-11] MEDS ORDERED: VANCOMYCIN/WATER 1,250 MG/250 ML BAG (RESTRICTED TO ID ONLY) IVPB ONE (12:42)
[2022-11-11] MEDS ORDERED: CEFOXITIN SODIUM 2 GM in DEXTROSE 5%-WATER - 100 ML IVPB ONE (12:48)
[2022-11-11] MEDS ORDERED: VANCOMYCIN/WATER 1250 MG 1,250 MG/250 ML BAG IVPB ONE (13:09)
[2022-11-11 13:27] LABS: BASO % 0.7 % (0-2.0); EOS % 2.9 % (0-4.5); HEMATOCRIT 40.8 % (35.4-49); HEMOGLOBIN 13.9 GM/dL (11.7-16.9); LYMPH % 21.4 % (8-40); MCH 31.6 pg (25.7-33.7); MEAN CELL VOLUME 92.9 fl (80-96); MEAN PLT VOLUME 6.9 fl (7.5-11.1); MONO % 6.7 % (3.8-10.2); NEUT % 68.3 % (42.8-82.8); PLATELET COUNT 358 10^3/uL (134-434); RDW 13.3 % (11.9-15.9); WHITE BLOOD COUNT 9.4 K/mm3 (4.0-10.0)
[2022-11-11 13:52] LABS: ALBUMIN 4.1 g/dl (3.4-5.0); BLOOD UREA NITROGEN 16.1 mg/dL (7-18); CALCIUM 9.7 mg/dL (8.5-10.1)
[2022-11-11 13:57] LABS: BILIRUBIN,TOTAL 0.6 mg/dL (0.2-1); TOT PROT 8.2 g/dl (6.4-8.2)
[2022-11-11 14:08] LABS: ERYTHROCYTE SEDIMENTATION RATE 65 mm/hr (0-20)
[2022-11-11] MEDS ORDERED: LIDOCAINE HCL 1%, 10 MG/ML (50 mL VIAL) SQ ONE (14:16)
[2022-11-11] MEDS ORDERED: LIDOCAINE HCL 1%, 10 MG/ML (20ML VIAL) ONE (14:18)
[2022-11-11] MEDS ORDERED: PANTOPRAZOLE 40 MG TABLET PO ONE (15:35)
[2022-11-11] MEDS ORDERED: ACETAMINOPHEN 325 MG TABLET (FP) PO PRN (22:09)
[2022-11-11] MEDS ORDERED: ALBUTEROL SO4 HFA INHALER IH PRN (22:15)
[2022-11-11] MEDS ORDERED: POLYETHYLENE GLYCOL (HEALTHYLAX) 3350 17 GM PACKET PO PRN (22:15)
[2022-11-11] MEDS ORDERED: MELATONIN 5 MG TABLETS PO PRN (22:19)
[2022-11-11] MEDS ORDERED: VITAMINS A AND D TOPICAL OINTMENT 60 GM TUBE TP PRN (22:26)
[2022-11-12] MEDS: traMADol HCL 50 MG TABLET PO SCH ×5 (00:04→21:39)
[2022-11-12] MEDS: ATORVASTATIN CA 40 MG TABLET (FP) PO SCH ×3 (00:06→21:37)
[2022-11-12] MEDS: MIRTAZAPINE 30 MG TABLET PO SCH ×3 (00:07→21:38)
[2022-11-12] MEDS: LATANOPROST 0.005% OPHTH SOLN 2.5ML BOTTLE OU SCH ×2 (00:11→22:49)
[2022-11-12] MEDS: LIDOCAINE PATCH REMOVAL MC SCH ×2 (00:33→21:37)
[2022-11-12] MEDS: CEFOXITIN SODIUM 2 GM in DEXTROSE 5%-WATER 100 ML IVPB SCH ×3 (01:26→17:12)
[2022-11-12] MEDS: VANCOMYCIN 1 GM/200 ML PREMIX BAG (RESTRICTED TO ID ONLY) IVPB SCH ×2 (02:56→14:29)
[2022-11-12] MEDS: INSULIN SLIDING SCALE (NOVOLOG) 1 VIAL SQ SCH ×4 (06:15→21:47)
[2022-11-12] MEDS: ISOSORBIDE MONONITRATE 30 MG TAB.SR.24H (FP) PO SCH (09:30)
[2022-11-12] MEDS: SPIRONOLACTONE 25 MG TABLET PO SCH (09:30)
[2022-11-12] MEDS: ASPIRIN COATED 81 MG TABLET.EC PO SCH (09:30)
[2022-11-12] MEDS: hydrALAZINE HCL 10 MG TABLET PO SCH ×2 (09:30→21:34)
[2022-11-12] MEDS: levETIRAcetam 500 MG TABLET (FP) PO SCH ×2 (09:30→21:36)
[2022-11-12] MEDS: LORATADINE 10 MG TABLET PO SCH (09:31)
[2022-11-12] MEDS: LIDOCAINE 5% TOPICAL PATCH TP SCH (09:31)
[2022-11-12] MEDS: LISINOPRIL 5 MG TABLET PO SCH (09:31)
[2022-11-12] MEDS: DOCUSATE SODIUM 100 MG CAPSULE (FP) PO SCH (09:37)
[2022-11-12] MEDS: MULTIVITAMINS (DAILY MVI) TABLET (FP) PO SCH (09:37)
[2022-11-12 10:32] LABS: BASO % 0.6 % (0-2.0); EOS % 5.1 % (0-4.5); HEMATOCRIT 36.6 % (35.4-49); HEMOGLOBIN 12.4 GM/dL (11.7-16.9); LYMPH % 18.1 % (8-40); MCH 31.5 pg (25.7-33.7); MEAN CELL VOLUME 92.8 fl (80-96); MEAN PLT VOLUME 6.6 fl (7.5-11.1); MONO % 6.2 % (3.8-10.2); PLATELET COUNT 302 10^3/uL (134-434); RBC 3.94 M/mm3 (4.00-5.60); WHITE BLOOD COUNT 6.7 K/mm3 (4.0-10.0)
[2022-11-12 10:38] LABS: INR 1.33 (0.83-1.09); PROTHROMBIN TIME (PATIENT) 15.4 SEC (9.7-13.0)
[2022-11-12 10:58] LABS: BLOOD UREA NITROGEN 14.6 mg/dL (7-18); CALCIUM 8.7 mg/dL (8.5-10.1)
[2022-11-12 11:01] LABS: CREATININE 1.1 mg/dL (0.55-1.3); PHOSPHOROUS 2.9 mg/dL (2.5-4.9)
[2022-11-12] MEDS ORDERED: INSULIN SLIDING SCALE (NOVOLOG) 1 VIAL SQ ONE (11:41)
[2022-11-12] MEDS: HEPARIN NA (PORCINE) 5,000 UNITS/ML 1ML VIAL SQ SCH ×2 (14:28→21:34)
[2022-11-12] MEDS: SENNOSIDES 8.6MG TABLET (FP) PO SCH (21:38)
[2022-11-13] MEDS ORDERED: VANCOMYCIN 1 GM/200 ML PREMIX BAG (RESTRICTED TO ID ONLY) IVPB SCH (01:30)
[2022-11-13] MEDS: HEPARIN NA (PORCINE) 5,000 UNITS/ML 1ML VIAL SQ SCH ×3 (05:35→22:45)
[2022-11-13] MEDS: traMADol HCL 50 MG TABLET PO SCH ×3 (05:37→22:55)
[2022-11-13] MEDS: INSULIN SLIDING SCALE (NOVOLOG) 1 VIAL SQ SCH ×4 (06:06→22:46)
[2022-11-13] MEDS: ASPIRIN COATED 81 MG TABLET.EC PO SCH (11:17)
[2022-11-13] MEDS: LISINOPRIL 5 MG TABLET PO SCH (11:18)
[2022-11-13] MEDS: LORATADINE 10 MG TABLET PO SCH (11:18)
[2022-11-13] MEDS: hydrALAZINE HCL 10 MG TABLET PO SCH ×2 (11:18→22:45)
[2022-11-13] MEDS: SPIRONOLACTONE 25 MG TABLET PO SCH (11:18)
[2022-11-13] MEDS: ISOSORBIDE MONONITRATE 30 MG TAB.SR.24H (FP) PO SCH (11:19)
[2022-11-13] MEDS: DOCUSATE SODIUM 100 MG CAPSULE (FP) PO SCH (11:19)
[2022-11-13] MEDS: LIDOCAINE 5% TOPICAL PATCH TP SCH (11:20)
[2022-11-13] MEDS: levETIRAcetam 500 MG TABLET (FP) PO SCH ×2 (11:20→22:45)
[2022-11-13] MEDS: MULTIVITAMINS (DAILY MVI) TABLET (FP) PO SCH (11:21)
[2022-11-13] MEDS ORDERED: INSULIN SLIDING SCALE (NOVOLOG) 1 VIAL SQ ONE (11:22)
[2022-11-13] MEDS ORDERED: AZTREONAM 1 GM in DEXTROSE 5%-WATER - 50 ML IVPB SCH (13:30)
[2022-11-13] MEDS ORDERED: SULFAMETHOXAZOLE/TRIMETHOPRIM 400MG/80MG S.S. TABLET PO SCH (13:30)
[2022-11-13] MEDS: CEFOXITIN SODIUM 2 GM in DEXTROSE 5%-WATER 100 ML IVPB SCH (13:53)
[2022-11-13 22:43] VITALS: RESP 18; TEMP 98.5
[2022-11-13] MEDS: ATORVASTATIN CA 40 MG TABLET (FP) PO SCH (22:46)
[2022-11-13] MEDS: SENNOSIDES 8.6MG TABLET (FP) PO SCH (22:46)
[2022-11-13] MEDS: MIRTAZAPINE 30 MG TABLET PO SCH (22:46)
[2022-11-13] MEDS: SULFAMETHOXAZOLE/TRIMETHOPRIM 400MG/80MG S.S. TABLET PO SCH (22:49)
[2022-11-13] MEDS: LATANOPROST 0.005% OPHTH SOLN 2.5ML BOTTLE OU SCH (22:55)
[2022-11-13] MEDS: LIDOCAINE PATCH REMOVAL MC SCH (22:56)
[2022-11-14] MEDS: HEPARIN NA (PORCINE) 5,000 UNITS/ML 1ML VIAL SQ SCH ×2 (05:18→06:12)
[2022-11-14] MEDS: traMADol HCL 50 MG TABLET PO SCH (05:18)
[2022-11-14] MEDS: INSULIN SLIDING SCALE (NOVOLOG) 1 VIAL SQ SCH ×2 (06:12→12:17)
[2022-11-14 10:03] VITALS: BP 130/81; PULSE 89
[2022-11-14] MEDS: ASPIRIN COATED 81 MG TABLET.EC PO SCH (10:04)
[2022-11-14] MEDS: LISINOPRIL 5 MG TABLET PO SCH (10:04)
[2022-11-14] MEDS: MULTIVITAMINS (DAILY MVI) TABLET (FP) PO SCH (10:04)
[2022-11-14] MEDS: levETIRAcetam 500 MG TABLET (FP) PO SCH (10:04)
[2022-11-14] MEDS: DOCUSATE SODIUM 100 MG CAPSULE (FP) PO SCH (10:04)
[2022-11-14] MEDS: LORATADINE 10 MG TABLET PO SCH (10:04)
[2022-11-14] MEDS: SPIRONOLACTONE 25 MG TABLET PO SCH ×2 (10:04→10:36)
[2022-11-14] MEDS: ISOSORBIDE MONONITRATE 30 MG TAB.SR.24H (FP) PO SCH (10:04)
[2022-11-14] MEDS: hydrALAZINE HCL 10 MG TABLET PO SCH (10:04)
[2022-11-14] MEDS: LIDOCAINE 5% TOPICAL PATCH TP SCH (10:05)
[2022-11-14] MEDS: SULFAMETHOXAZOLE/TRIMETHOPRIM 400MG/80MG S.S. TABLET PO SCH (10:39)
== END 2022-11-14 12:45 | DRG 603 ==
LOC: JER 12:14 → JERBED 18:39 → J5S 22:30
PROVIDERS: ADMIT Internal Medicine; ATTEND Family Medicine
PROC: 0H9FXZZ Drainage of Right Hand Skin, External Approach (ICD-10-PCS; principal; 2022-11-11)
DX: L03.011 Cellulitis of right finger (principal); I44.0 Atrioventricular block, first degree; E11.9 Type 2 diabetes mellitus without complications; I10 Essential (primary) hypertension; H54.40 Blindness, one eye, unspecified eye; I69.898 Other sequelae of other cerebrovascular disease; E78.00 Pure hypercholesterolemia, unspecified; Z96.653 Presence of artificial knee joint, bilateral
CPT/HCPCS: 36415; 73130-TC-RT-FY; 80048; 80053; 82962; 83735; 84100; 85025; 85610; 85651; 85730; 86140; 87040; 93005; 93010; 99285-25; C9803-CS; J1644; U0003; U0005

== ENCOUNTER 2023-09-23 19:17 | Inpatient (IN) | payer OTHER ==
[2023-09-23 22:41] LABS: BASO % 0.5 % (0-2.0); EOS % 6.3 % (0-4.5); HEMATOCRIT 40.2 % (35.4-49); HEMOGLOBIN 13.2 GM/dL (11.7-16.9); LYMPH % 35.4 % (8-40); MCH 30.8 pg (25.7-33.7); MCHC 32.9 g/dl (32.0-35.9); MEAN CELL VOLUME 93.5 fl (80-96); MONO % 10.3 % (3.8-10.2); NEUT % 47.5 % (42.8-82.8); RDW 13.2 % (11.9-15.9); WHITE BLOOD COUNT 6.3 K/mm3 (4.0-10.0)
[2023-09-23 23:18] LABS: MEAN PLT VOLUME 7.7 fl (7.5-11.1); PLATELET COUNT 313 10^3/uL (134-434)
[2023-09-23 23:45] LABS: ALBUMIN 4.1 g/dl (3.4-5.0); BLOOD UREA NITROGEN 20.4 mg/dL (7-18); CALCIUM 9.9 mg/dL (8.5-10.1)
[2023-09-23 23:49] LABS: CREATININE 0.7 mg/dL (0.55-1.3)
[2023-09-23 23:50] LABS: BILIRUBIN,TOTAL 0.4 mg/dL (0.2-1); TOT PROT 7.8 g/dl (6.4-8.2)
[2023-09-24] MEDS ORDERED: ACETAMINOPHEN 325 MG TABLET (FP) PO ONE (02:11)
[2023-09-24] MEDS ORDERED: ACETAMINOPHEN 325 MG TABLET (FP) ONE (02:14)
[2023-09-24] MEDS ORDERED: ACETAMINOPHEN 325 MG TABLET (FP) PO PRN ×2 (07:53→09:16)
[2023-09-24] MEDS ORDERED: traMADol HCL 50 MG TABLET PO PRN (07:53)
[2023-09-24] MEDS ORDERED: ISOSORBIDE MONONITRATE 30 MG TAB.SR.24H (FP) PO ONE (08:23)
[2023-09-24] MEDS ORDERED: levETIRAcetam 500 MG TABLET (FP) PO ONE (08:23)
[2023-09-24] MEDS ORDERED: ASPIRIN COATED 81 MG TABLET.EC ONE (08:23)
[2023-09-24] MEDS ORDERED: REMDESIVIR 200 MG in SODIUM CHLORIDE 250 ML IVPB ONE (10:00)
[2023-09-24] MEDS: levETIRAcetam 500 MG TABLET (FP) PO SCH (10:18)
[2023-09-24] MEDS: ASPIRIN COATED 81 MG TABLET.EC PO SCH (10:18)
[2023-09-24] MEDS: LISINOPRIL 5 MG TABLET PO SCH (10:18)
[2023-09-24] MEDS: ISOSORBIDE MONONITRATE 30 MG TAB.SR.24H (FP) PO SCH (10:18)
[2023-09-24] MEDS ORDERED: IBUPROFEN 800 MG/8 ML IJ IVPB PRN (11:11)
[2023-09-24] MEDS: INSULIN SLIDING SCALE (NOVOLOG) 1 VIAL SQ SCH ×2 (11:36→17:11)
[2023-09-25] MEDS: ATORVASTATIN CA 40 MG TABLET (FP) PO SCH ×2 (00:59→22:40)
[2023-09-25] MEDS: levETIRAcetam 500 MG TABLET (FP) PO SCH ×3 (00:59→22:39)
[2023-09-25] MEDS: HEPARIN NA (PORCINE) 5,000 UNITS/ML 1ML VIAL SQ SCH ×3 (00:59→22:37)
[2023-09-25] MEDS: MIRTAZAPINE 15 MG TABLET (FP) PO SCH ×2 (00:59→22:41)
[2023-09-25] MEDS ORDERED: levETIRAcetam 500 MG TABLET (FP) PO ONE (01:00)
[2023-09-25] MEDS ORDERED: ATORVASTATIN CA 40 MG TABLET (FP) ONE (01:01)
[2023-09-25] MEDS ORDERED: MIRTAZAPINE 15 MG TABLET (FP) ONE (01:01)
[2023-09-25] MEDS ORDERED: HEPARIN NA (PORCINE) 5,000 UNITS/ML 1ML VIAL ONE (01:02)
[2023-09-25] MEDS: INSULIN SLIDING SCALE (NOVOLOG) 1 VIAL SQ SCH ×4 (01:55→17:07)
[2023-09-25] MEDS ORDERED: REMDESIVIR 100 MG in SODIUM CHLORIDE 250 ML IVPB ONE (10:00)
[2023-09-25] MEDS: ASPIRIN COATED 81 MG TABLET.EC PO SCH (10:18)
[2023-09-25] MEDS: LISINOPRIL 5 MG TABLET PO SCH (10:19)
[2023-09-25] MEDS: ISOSORBIDE MONONITRATE 30 MG TAB.SR.24H (FP) PO SCH (10:19)
[2023-09-25 20:03] LABS: POTASSIUM 5.3 mmol/L (3.5-5.1)
[2023-09-25 20:05] LABS: CALCIUM 9.2 mg/dL (8.5-10.1)
[2023-09-25 20:06] LABS: ALBUMIN 3.7 g/dl (3.4-5.0); BLOOD UREA NITROGEN 10.6 mg/dL (7-18)
[2023-09-25 20:09] LABS: CREATININE 0.8 mg/dL (0.55-1.3)
[2023-09-25 20:11] LABS: BILIRUBIN,TOTAL 0.6 mg/dL (0.2-1); TOT PROT 7.3 g/dl (6.4-8.2)
[2023-09-25] MEDS: hydrALAZINE HCL 10 MG TABLET PO SCH (22:37)
[2023-09-26] MEDS ORDERED: hydrALAZINE HCL 10 MG TABLET ONE (00:11)
[2023-09-26] MEDS: INSULIN SLIDING SCALE (NOVOLOG) 1 VIAL SQ SCH ×5 (00:41→22:03)
[2023-09-26] MEDS: ASPIRIN COATED 81 MG TABLET.EC PO SCH (09:54)
[2023-09-26] MEDS: ISOSORBIDE MONONITRATE 30 MG TAB.SR.24H (FP) PO SCH (09:54)
[2023-09-26] MEDS: levETIRAcetam 500 MG TABLET (FP) PO SCH ×2 (09:54→22:02)
[2023-09-26] MEDS: hydrALAZINE HCL 10 MG TABLET PO SCH ×2 (09:54→22:02)
[2023-09-26] MEDS: LISINOPRIL 5 MG TABLET PO SCH (09:54)
[2023-09-26] MEDS: HEPARIN NA (PORCINE) 5,000 UNITS/ML 1ML VIAL SQ SCH ×2 (09:54→22:02)
[2023-09-26] MEDS ORDERED: REMDESIVIR 100 MG in SODIUM CHLORIDE 250 ML IVPB ONE (10:00)
[2023-09-26 10:04] LABS: HEMATOCRIT 38.3 % (35.4-49); MCH 31.7 pg (25.7-33.7); MCHC 33.8 g/dl (32.0-35.9); MEAN CELL VOLUME 93.8 fl (80-96); MEAN PLT VOLUME 6.9 fl (7.5-11.1); PLATELET COUNT 271 10^3/uL (134-434); RBC 4.09 M/mm3 (4.00-5.60); RDW 12.7 % (11.9-15.9); WHITE BLOOD COUNT 5.7 K/mm3 (4.0-10.0)
[2023-09-26 10:19] LABS: POTASSIUM 3.9 mmol/L (3.5-5.1)
[2023-09-26 10:22] LABS: ALBUMIN 3.4 g/dl (3.4-5.0); BLOOD UREA NITROGEN 12.7 mg/dL (7-18); MAGNESIUM 2.1 mg/dL (1.8-2.4)
[2023-09-26 10:25] LABS: CREATININE 0.7 mg/dL (0.55-1.3); PHOSPHOROUS 2.8 mg/dL (2.5-4.9)
[2023-09-26 10:26] LABS: TOT PROT 6.7 g/dl (6.4-8.2)
[2023-09-26 10:31] LABS: BILIRUBIN,TOTAL 0.5 mg/dL (0.2-1)
[2023-09-26] MEDS: ATORVASTATIN CA 40 MG TABLET (FP) PO SCH (22:02)
[2023-09-26] MEDS: MIRTAZAPINE 15 MG TABLET (FP) PO SCH (22:03)
[2023-09-27] MEDS: INSULIN SLIDING SCALE (NOVOLOG) 1 VIAL SQ SCH ×4 (06:33→22:08)
[2023-09-27] MEDS: HEPARIN NA (PORCINE) 5,000 UNITS/ML 1ML VIAL SQ SCH ×2 (09:16→22:07)
[2023-09-27] MEDS: hydrALAZINE HCL 10 MG TABLET PO SCH ×2 (09:16→22:06)
[2023-09-27] MEDS: ASPIRIN COATED 81 MG TABLET.EC PO SCH (09:16)
[2023-09-27] MEDS: LISINOPRIL 5 MG TABLET PO SCH (09:16)
[2023-09-27] MEDS: ISOSORBIDE MONONITRATE 30 MG TAB.SR.24H (FP) PO SCH (09:16)
[2023-09-27] MEDS: levETIRAcetam 500 MG TABLET (FP) PO SCH ×2 (09:16→22:06)
[2023-09-27] MEDS: COLLAGENASE CLOSTRIDIUM HIST. 30 GRAMS TUBE TP SCH (17:24)
[2023-09-27] MEDS: ATORVASTATIN CA 40 MG TABLET (FP) PO SCH (22:06)
[2023-09-27] MEDS: MIRTAZAPINE 15 MG TABLET (FP) PO SCH (22:07)
[2023-09-28] MEDS: INSULIN SLIDING SCALE (NOVOLOG) 1 VIAL SQ SCH ×4 (06:42→21:22)
[2023-09-28] MEDS: LISINOPRIL 5 MG TABLET PO SCH (09:58)
[2023-09-28] MEDS: ISOSORBIDE MONONITRATE 30 MG TAB.SR.24H (FP) PO SCH (09:58)
[2023-09-28] MEDS: levETIRAcetam 500 MG TABLET (FP) PO SCH ×2 (09:58→21:17)
[2023-09-28] MEDS: HEPARIN NA (PORCINE) 5,000 UNITS/ML 1ML VIAL SQ SCH ×2 (09:58→21:18)
[2023-09-28] MEDS: ASPIRIN COATED 81 MG TABLET.EC PO SCH (09:59)
[2023-09-28] MEDS: hydrALAZINE HCL 10 MG TABLET PO SCH ×2 (09:59→21:17)
[2023-09-28] MEDS: COLLAGENASE CLOSTRIDIUM HIST. 30 GRAMS TUBE TP SCH (10:00)
[2023-09-28 19:30] VITALS: RESP 18
[2023-09-28] MEDS: MIRTAZAPINE 15 MG TABLET (FP) PO SCH (21:17)
[2023-09-28] MEDS: ATORVASTATIN CA 40 MG TABLET (FP) PO SCH (21:17)
[2023-09-28 22:38] VITALS: BP 146/78; PULSE 73; TEMP 99.1
== END 2023-09-29 01:40 | DRG 177 ==
LOC: JER 19:17 → JERBED 09-24 02:11 → OBSVTOIN 09-24 12:42 → J6S 09-26 03:55
PROVIDERS: ADMIT Internal Medicine
PROC: XW033E5 Introduction of Remdesivir Anti-infective into Peripheral Vein, Percutaneous Approach, New Technology Group 5 (ICD-10-PCS; principal; 2023-09-25)
DX: U07.1 COVID-19 (principal); J12.82 Pneumonia due to coronavirus disease 2019; I10 Essential (primary) hypertension; G43.909 Migraine, unspecified, not intractable, without status migrainosus; R09.02 Hypoxemia; R53.1 Weakness; H54.40 Blindness, one eye, unspecified eye; G40.909 Epilepsy, unspecified, not intractable, without status epilepticus; I25.10 Atherosclerotic heart disease of native coronary artery without angina pectoris; E11.51 Type 2 diabetes mellitus with diabetic peripheral angiopathy without gangrene; R23.4 Changes in skin texture
CPT/HCPCS: 0241U-QW; 36415; 71046-TC-FY; 80053; 82550; 82962; 83735; 83880; 84100; 84484; 85025; 85027; 86140; 93925-TC; 99285-25; G0378; J0248; J1644